=== PATIENT | female | born 1950 | race Caucasian/White ===

== ENCOUNTER → 2017-03-08 | Outpatient (CLI) | payer BC | END | disposition home or self-care (01) | LOC: PCVCCLINIC 14:02 | PROVIDERS: ATTEND Internal Medicine Cardiovascular Disease | DX: I10 Essential (primary) hypertension (principal); E78.5 Hyperlipidemia, unspecified; I83.11 Varicose veins of right lower extremity with inflammation; I83.12 Varicose veins of left lower extremity with inflammation; Z90.49 Acquired absence of other specified parts of digestive tract; Z79.82 Long term (current) use of aspirin; Z88.6 Allergy status to analgesic agent; Z88.1 Allergy status to other antibiotic agents | CPT/HCPCS: 80061; G0463 ==

== ENCOUNTER → 2018-07-26 | Outpatient (CLI) | payer MEDICARE, BC | END | disposition home or self-care (01) | LOC: PCVCCLINIC 13:48 | PROVIDERS: ATTEND Internal Medicine Cardiovascular Disease | DX: I10 Essential (primary) hypertension (principal); R94.31 Abnormal electrocardiogram [ECG] [EKG]; R06.83 Snoring; R53.83 Other fatigue; Z88.5 Allergy status to narcotic agent; Z90.49 Acquired absence of other specified parts of digestive tract; Z72.89 Other problems related to lifestyle; Z88.1 Allergy status to other antibiotic agents | CPT/HCPCS: 36415; 80061; 93005; G0463 ==

== ENCOUNTER → 2019-04-19 | Outpatient (CLI) | payer MEDICARE, BC | END | disposition home or self-care (01) | LOC: PCVCCLINIC 13:00 | PROVIDERS: ATTEND Internal Medicine Cardiovascular Disease | DX: I10 Essential (primary) hypertension (principal); R06.02 Shortness of breath; R07.89 Other chest pain; E78.5 Hyperlipidemia, unspecified; G47.33 Obstructive sleep apnea (adult) (pediatric); I87.2 Venous insufficiency (chronic) (peripheral); R60.0 Localized edema | CPT/HCPCS: 36415; 80061; 93005; G0463 ==

== ENCOUNTER → 2019-06-01 | Outpatient (CLI) | payer MEDICARE, BC ==
--- NOTE | 2019-06-01 17:18 | PCVCIMAG ---
APPROVED REPORT Study performed: 06/01/2019 15:27:09 Exam: Stress Echocardiogram Indication: Dyspnea , Hyperlipidemia, Hypertension Patient Location: Echo lab Stress Nurse: Yolanda Narayanan RN Room #: 1 Status: routine Ht: 5 ft 4 in HR: 65 bpm BP: 134/78 mmHgBMI: 3 Rhythm: NSR Procedure The patient underwent an Exercise Stress Test using the Ambrosio Protocol. Blood pressure, heart rate, and EKG were monitored. An Echocardiogram was performed by avionics systems technician in four stages in quad fashion. At peak stress, four selected images were obtained and placed side by side with resting images for comparison. Stress Test Details Stress Test: Exercise stress testing was performed using a Ambrosio protocol. HR Resting HR: 65 bpmMax Heart Rate (APMHR): 152 bpm Max HR Achieved: 142 bpmTarget HR (85% APMHR): 129 bpm % of APMHR: 93 Recovery HR: 80 bpm HR response to stress: Normal HR response to stress BP Resting BP: 134/78 mmHg Max BP: 162/90 mmHg Recovery BP: 154/72 mmHg BP response to stress: Normal blood pressure response to stress. ECG Resting ECG: Sinus Rhythm Stress ECG: Sinus Rhythm Arrhythmia: Occasional PVC's Recovery ECG: Sinus Rhythm Clinical Reason for Termination: Maximal effort Exercise duration: 6 min 31 sec Highest Stage Achieved: Stage 3: 3.4 mph at 14% grade. Exercise capacity: 8.40 METs Overall Exercise Capacity for Age: Average Stress ECG Conclusion ECG: Non-ischemic Clinical: Non-ischemic Pre-Stress Echo The resting Echocardiogram showed normal left ventricular contractility with an estimated Ejection Fraction of about >55%. Normal wall motion in all segments on baseline images. Post-Stress Echo The stress Echocardiogram showed normal left ventricular contractility with an estimated Ejection Fraction of about 60-65%. Normal augmentation of wall motion in all segments on post stress images. Clinical No clinical or ECG evidence for ischemia. Conclusion Clinical Response: Non-ischemic Exercise Capacity: Average Stress ECG Response: Non-ischemic Stress Echo Images: Non-ischemic No clinical, EKG or echocardiographic evidence for ischemia. Normal stress echocardiogram with maximal exercise stress. Doppler and color flow demonstrate mild tricuspid regurgitation and trace mitral regurgitation. Aneurysmal atrial septum with no shunting by color flow doppler. Other Information Study Quality: Good <Conclusion> No clinical, EKG or echocardiographic evidence for ischemia. Normal stress echocardiogram with maximal exercise stress. Doppler and color flow demonstrate mild tricuspid regurgitation and trace mitral regurgitation. Aneurysmal atrial septum with no shunting by color flow doppler.
--- NOTE | 2019-06-01 23:41 | PCVCIMAG ---
EXAM: BILATERAL SUPERFICIAL VENOUS DUPLEX INDICATION: Leg pain and swelling. FINDINGS: Right leg: No thrombus in the common femoral, main femoral, or popliteal veins. These veins are compressible. Right Great Saphenous Vein: At the saphenofemoral junction the diameter is 8.2 mm, in the mid thigh it is 5.7 mm, and in the calf it is 3.4 mm. There is not significant venous insufficiency/reflux throughout. Venous insufficiency/reflux duration is 0.2 seconds. Right Small Saphenous Vein: At the saphenopopliteal junction the diameter is 3.8 mm, and in the calf it is 3.9 mm. There is not significant venous insufficiency/reflux throughout. Venous insufficiency/reflux duration is 0 seconds. There is not a cranial extension present. Left leg: No thrombus in the common femoral, main femoral, or popliteal veins. These veins are compressible. Left Great Saphenous Vein: At the saphenofemoral junction the diameter is 10.5 mm, in the mid thigh it is 6.4 mm, and in the calf it is 4.0 mm. There is not significant venous insufficiency/reflux throughout. Venous insufficiency/reflux duration is 0 seconds. Left Small Saphenous Vein: At the saphenopopliteal junction the diameter is 5.4 mm, and in the calf it is 3.6 mm. There is not significant venous insufficiency/reflux throughout. Venous insufficiency/reflux duration is 0 seconds. There is not a cranial extension present. IMPRESSION: Right Great Saphenous Vein: No significant venous insufficiency/reflux is present as noted above. Right Small Saphenous Vein: No significant venous insufficiency/reflux is present as noted above. Left Great Saphenous Vein: No significant venous insufficiency/reflux is present as noted above. Left Small Saphenous Vein: No significant venous insufficiency/reflux is present as noted above. LOC:[id number]
== END | disposition home or self-care (01) ==
LOC: PCVCIMAG 13:17
PROVIDERS: ATTEND Internal Medicine Cardiovascular Disease
DX: I10 Essential (primary) hypertension (principal); R06.00 Dyspnea, unspecified; I07.1 Rheumatic tricuspid insufficiency; R07.89 Other chest pain; R53.83 Other fatigue; J45.909 Unspecified asthma, uncomplicated; G47.33 Obstructive sleep apnea (adult) (pediatric)
CPT/HCPCS: 93325; 93351; 93970